=== PATIENT | female | born 1965 | race Caucasian/White ===

== ENCOUNTER 2019-10-30 00:16 | Emergency (ER) | payer BC ==
[2019-10-30] MEDS ORDERED: NORMAL SALINE 1000 ML 1,000 ML IV ONE ×2 (00:28→02:41)
--- NOTE | 2019-10-30 00:33 | ER Document Report ---
ED Medical Screen (RME) - General Stated Complaint: SUGAR ISSUES Time Seen by Provider: 10/30/19 00:28 Mode of Arrival: Wheelchair Information source: Patient Notes: Patient presents complaining of diabetes and a need for insulin. Patient states she was just recently diagnosed 3 weeks ago with diabetes and had been placed on metformin. Patient states that 2 days ago her doctor was going to switch her off of the metformin to insulin but she had to get a prior authorization that had not gone through so she did not get her insulin. Patient is not currently on any diabetic medications at this time. Patient complains of not feeling well increased thirst and diarrhea. Patient states earlier today she had some mild chest pain. Patient complains of pain to the hands and feet. Patient just moved here from [place] and states that her insulin prescription is sitting in a pharmacy in [place]. hx: Hypertension, diabetes, degenerative disc disease I have greeted and performed a rapid initial assessment of this patient. A comprehensive ED assessment and evaluation of the patient, analysis of test results and completion of the medical decision making process will be conducted by additional ED providers. - Related Data Allergies/Adverse Reactions: No Known Allergies Allergy (Unverified 10/30/19 00:30) Physical Exam - General General appearance: Appears well, Alert - Respiratory Respiratory status: No respiratory distress Chest status: Tender Chest palpation: Tender - Cardiovascular Rhythm: Regular Heart sounds: S1 appreciated, S2 appreciated
[2019-10-30] MEDS ORDERED: INSULIN REG, HUMAN 100 UNIT/ML 3 ML VIAL (PYX) IV ONE (02:41)
[2019-10-30] MEDS ORDERED: KETOROLAC TROMETHAMINE INJ/PF 30 MG/1 ML SDV IV ONE (02:42)
[2019-10-30 02:44] LABS: ABSOLUTE LYMPHOCYTES (AUTO) 3.3 10^3/uL (0.5-4.7); ABSOLUTE MONOCYTES (AUTO) 0.6 10^3/uL (0.1-1.4); ABSOLUTE NEUT (AUTO) 4.6 10^3/uL (1.7-8.2); BASOPHILS % (AUTO) 0.6 % (0-2); EOSINOPHILS % (AUTO) 0.5 % (0-6); HEMATOCRIT 45.2 % (36.0-47.0); HEMOGLOBIN 14.8 g/dL (12.0-15.5); LYMPHOCYTES % (AUTO) 37.9 % (13-45); MEAN CORPUSCULAR HEMOGLOBIN 28.5 pg (27.0-33.4); MEAN CORPUSCULAR HGB CONC 32.8 g/dL (32.0-36.0); MEAN CORPUSCULAR VOLUME 87 fl (80-97); MONOCYTES % (AUTO) 7.5 % (3-13); PLATELET COUNT 250 10^3/uL (150-450); RED BLOOD COUNT 5.21 10^6/uL (3.72-5.28); RED CELL DISTRIBUTION WIDTH 15.6 % (11.5-14.0); SEGMENTED NEUTROPHILS % (AUTO) 53.5 % (42-78); TOTAL CELLS COUNTED % (AUTO) 100 %; WHITE BLOOD COUNT 8.6 10^3/uL (4.0-10.5)
--- NOTE | 2019-10-30 02:45 | ER Document Report ---
Entered by KAT OLIVER SCRIBE 10/30/19 0218 Acting as scribe for:BETTY HYLTON IV, MD ED Blood Sugar Problem - General Chief Complaint: High Blood Sugar Stated Complaint: SUGAR ISSUES Time Seen by Provider: 10/30/19 00:28 Primary Care Provider: CHACHA DUMONT MD [HONORARY] - Follow up as needed Mode of Arrival: Wheelchair Information source: Patient Notes: This 53 year old female patient, recently diagnosed with diabetes x3 weeks ago presents to the ED today with complaints of high blood sugar. Patient states that she was placed on Metformin; however, her BGL readings were still high in the 600s despite being increased from 500 mg to 1000 mg. She reports that she is transitioning from [place] and her PCP there was going to switch her from Metformin to insulin, but she had to get "prior approval" that has not gone through yet, so she is not currently on any diabetic medications. She notes that her prescription is in a pharmacy in [place]. She complains of pain to her lower abdomen, hands, and feet. Denies any other complaints. - Related Data Allergies/Adverse Reactions: No Known Allergies Allergy (Unverified 10/30/19 00:30) Home Medications: INSULIN (OUT, NEVER FILLED). [place] Past Medical History - General Information source: Patient - Social History Smoking Status: Current Every Day Smoker Smoking Education Provided: No Frequency of alcohol use: None Drug Abuse: None Family History: Reviewed & Not Pertinent Patient has suicidal ideation: No Patient has homicidal ideation: No - Past Medical History Cardiac Medical History: Reports: Hx Hypertension Endocrine Medical History: Reports: Hx Diabetes Mellitus Type 2 Review of Systems - Review of Systems Constitutional: See HPI EENT: No symptoms reported Cardiovascular: No symptoms reported Respiratory: No symptoms reported Gastrointestinal: See HPI Genitourinary: No symptoms reported Female Genitourinary: No symptoms reported Musculoskeletal: See HPI Skin: No symptoms reported Hematologic/Lymphatic: No symptoms reported Neurological/Psychological: No symptoms reported -: Yes All other systems reviewed and negative Physical Exam - Vital signs Vitals: Temp Pulse Resp BP Pulse Ox 97.4 F 107 H 16 145/95 H 95 10/30/19 00:24 10/30/19 00:24 10/30/19 00:24 10/30/19 00:24 10/30/19 00:24 - General General appearance: Alert In distress: None - HEENT Head: Normocephalic, Atraumatic Eyes: Normal Pupils: PERRL - Respiratory Respiratory status: No respiratory distress Chest status: Nontender Breath sounds: Normal Chest palpation: Normal - Cardiovascular Rhythm: Regular Heart sounds: Normal auscultation Murmur: No Friction rub: No Gallop: None auscultated - Abdominal Inspection: Normal Distension: No distension Bowel sounds: Normal Tenderness: Nontender - Abdomen soft Organomegaly: No organomegaly - Back Back: Normal, Nontender - Extremities General upper extremity: Normal inspection General lower extremity: Normal inspection - Neurological Neuro grossly intact: Yes Orientation: AAOx4 [place] Coma Scale Eye Opening: Spontaneous [place] Coma Scale Verbal: Oriented [place] Coma Scale Motor: Obeys Commands [place] Coma Scale Total: 15 - Psychological Associated symptoms: Normal affect, Normal mood - Skin Skin Temperature: Warm Skin Moisture: Dry Skin Color: Normal Course - Re-evaluation Re-evalutation: 10/30/19 05:06 Results of ED MSE discussed with patient. Patient's blood glucose is down from the 600s into the 400s. This MD is going to order 4 units of subcu insulin to gradually bring the patient's blood sugar down more. Patient is uncertain about the prescription that is waiting for her at the pharmacy in terms of a hypoglycemic agent. In order to help the patient keep her blood sugar down, this MD is going to write for a sulfonylurea, glipizide XL 5 mg, dispense 5 tablets with no refills. All questions were answered prior to discharge. Emergency signs and symptoms, reasons to return to the emergency department discussed with patient. - Vital Signs Vital signs: Temp Pulse Resp BP Pulse Ox 97.6 F 83 16 133/83 H 95 10/30/19 05:35 10/30/19 05:35 10/30/19 05:35 10/30/19 05:35 10/30/19 05:35 - Laboratory Result Diagrams: 10/30/19 02:00 10/30/19 02:00 Laboratory results interpreted by me: 10/30/19 10/30/19 10/30/19 00:28 02:00 02:00 RDW 15.6 H Sodium 131.1 L Chloride 95 L Glucose 614 H* POC Glucose > 550 H* Alkaline Phosphatase 149 H Urine Glucose (UA) Urine Blood 10/30/19 10/30/1910/29/20 02:30 03:30 03:35 RDW Sodium Chloride Glucose POC Glucose > 550 H* 465 H* Alkaline Phosphatase Urine Glucose (UA) >=500 H Urine Blood SMALL H 10/30/19 04:59 RDW Sodium Chloride Glucose POC Glucose 428 H* Alkaline Phosphatase Urine Glucose (UA) Urine Blood - Diagnostic Test Radiology reviewed: Reports reviewed - EKG Interpretation by Me Additional EKG results interpreted by me: 10/30/19 05:09 EKG obtained on 10/30/2019 at 0128 hrs. was interpreted by this MD. Findings: Normal sinus rhythm, rate 96, normal axis, P waves proceed QRS complexes, QRS complexes appear narrow, there are no obvious patterns of ST segment elevation or depression present to suggest acute myocardial ischemia or infarction. Impression: Normal sinus rhythm with nonspecific ST segments. Discharge - Discharge Clinical Impression: Hyperglycemia due to diabetes mellitus Diabetic neuropathy Qualifiers: Diabetes mellitus type: type 2 Diabetes mellitus complication detail: diabetic polyneuropathy Qualified Code(s): E11.42 - Type 2 diabetes mellitus with diabetic polyneuropathy Condition: Stable Disposition: HOME, SELF-CARE Additional Instructions: Return to the Emergency Department without delay if any worse. HOME CARE INSTRUCTIONS & INFORMATION: Thank you for choosing us for your medical needs. We hope you're satisfied with the care you received. After you leave, you must properly care for your problem and, at the same time, observe its progress. Any condition can change. Some illnesses can change rapidly over hours or days. If your condition worsens, return to the Emergency Department or see your physician promptly. ABOUT YOUR X-RAYS AND EKG'S: If you had an EKG or X-rays taken, they have been read by the Emergency Physician. The X-rays and EKG's will also be read by a Radiologist or Petroleum Engineering Professor within 24 hours. If discrepancies are noted, you will be notified by telephone. Please be certain the ED has a correct telephone number & address where you can be reached. Also, realize that some fractures or abnormalities do not show up on initial X-rays. If your symptoms continue, see your physician. ABOUT YOUR LABORATORY TEST: If you had laboratory tests, the results have been reviewed by the Emergency Physician. Some test results (for example cultures) may not be available for several days. You will be contacted if any test result shows you need additional treatment. Please be certain the ED has a correct telephone number and address where you can be reached. ABOUT YOUR MEDICATIONS: You will receive instructions on how to take your medicine on the prescription label you receive. Additional information may be provided by the Pharmacy. If you have questions afterwards, call the ED for clarification or further instructions. Some prescribed medications may cause drowsiness. Do not perform tasks such as driving a car or operating machinery without consulting your Pharmacist. If you feel you need a refill of pain medication, your condition will need re-evaluation. Please do not call for a refill of any medication. ABOUT YOUR SIGNATURE: Signature of this document acknowledges to followin. Understanding that you received emergency treatment and that you may be released before al medical problems are known or treated. Please be certain the ED has a correct phone number & address where you can be reached. 2. Acknowledgement that you will arrange for follow-up care as recommended. 3. Authorization for the Emergency Physician to provide information to your follow-up Physician in order to maximize your care. AT ANY TIME, IF YOUR SYMPTOMS CHANGE SIGNIFICANTLY OR WORSEN OR YOU DEVELOP NEW SYMPTOMS, RETURN TO THE EMERGENCY DEPARTMENT IMMEDIATELY FOR RE-EVALUATION. OUR GOAL IS TO PROVIDE EXCELLENT MEDICAL CARE! WE HOPE THAT WE HAVE MET YOUR EXPECTATIONS DURING YOUR EMERGENCY DEPARTMENT VISIT AND THAT YOU FEEL YOU HAVE RECEIVED EXCELLENT CARE! Hyperglycemia (High Blood Sugar) You have an abnormally high blood sugar. Not all high blood sugar requires long-term treatment. High blood sugar can be due to medications, , or the stress of illness. (These cases are "borderline diabetes.") If the doctor feels your high blood sugar might resolve with time, you may not require treatment now. You will be scheduled for further evaluation. It's very important that you follow through, to see if the blood sugar returns to normal levels. Uncontrolled high blood sugar leads to early heart disease, strokes, nerve damage, eye damage, and kidney damage. Call the physician if there is faintness, excess sleepiness, or very rapid breathing. Prescriptions: Glipizide [Glipizide Xl] 5 mg PO QAM 5 Days #5 [id number] Referrals: CHACHA DUMONT MD [HONORARY] - Follow up as needed I personally performed the services described in the documentation, reviewed and edited the documentation which was dictated to the scribe in my presence, and it accurately records my words and actions.
[2019-10-30 03:01] LABS: ALKALINE PHOSPHATASE 149 U/L (38-126); ANION GAP 12 (5-19); ASPARTATE AMINO TRANSFERASE 29 U/L (14-36); BILIRUBIN,TOTAL 0.5 mg/dL (0.2-1.3); BLOOD UREA NITROGEN 18 mg/dL (7-20); CALCIUM 9.7 mg/dL (8.4-10.2); CARBON DIOXIDE 24 mmol/L (22-30); CHLORIDE 95 mmol/L (98-107); POTASSIUM 4.7 mmol/L (3.6-5.0); TOTAL PROTEIN 7.2 g/dL (6.3-8.2)
[2019-10-30 03:14] LABS: GLUCOSE 614 mg/dL (75-110)
[2019-10-30 03:23] LABS: VENOUS BLOOD HCO3 24.1 mmol/L (20-32); VENOUS BLOOD PCO2 41.6 mmHg (35-63); VENOUS BLOOD PH 7.38 (7.30-7.42)
--- NOTE | 2019-10-30 04:08 | RADIOLOGY REPORT (SQ) ---
CLINICAL HISTORY: cp COMPARISON: None. TECHNIQUE: XR CHEST 1 VIEW 10/30/2019 12:31 AM CDT FINDINGS: Cardiac silhouette is normal in size. Lungs are clear without consolidation, atelectasis, mass or edema. There is no pleural effusion. There is no pneumothorax. There are no acute osseous findings. IMPRESSION: Clear lungs.
[2019-10-30 04:35] LABS: APPEARANCE,URINE CLEAR; BILIRUBIN,URINE NEGATIVE (NEGATIVE); COLOR,URINE STRAW; GLUCOSE, URINE >=500 mg/dL (NEGATIVE); KETONES,URINE NEGATIVE (NEGATIVE); LEUKOCYTE ESTERASE,URINE NEGATIVE (NEGATIVE); NITRITE,URINE NEGATIVE (NEGATIVE); PROTEIN,URINE NEGATIVE (NEGATIVE); URINE SPECIFIC GRAVITY 1.031; UROBILINOGEN,URINE NEGATIVE mg/dL (<2.0)
[2019-10-30 04:56] LABS: URINE AMPHETAMINES SCREEN NEGATIVE; URINE BARBITURATES SCREEN NEGATIVE; URINE BENZODIAZEPINES SCREEN NEGATIVE; URINE COCAINE SCREEN NEGATIVE; URINE MARIJUANA (THC) SCREEN NEGATIVE; URINE PHENCYCLIDINE SCREEN NEGATIVE
[2019-10-30 04:57] LABS: URINE METHADONE SCREEN NEGATIVE
[2019-10-30] MEDS ORDERED: INSULIN REG, HUMAN 100 UNIT/ML 3 ML VIAL (PYX) SUBCUT ONE (05:03)
[2019-10-30] MEDS ORDERED: HYDROCODONE/ACETAMINOPHEN 5-325 MG (6 TAB/ER DISP) PO PRN (05:04)
[2019-10-30] MEDS ORDERED: HYDROCODONE/ACETAMINOPHEN 5-325 MG TABLET PO ONE (05:04)
[2019-10-30 05:42] VITALS: BP 133/83
--- NOTE | 2019-10-30 09:49 | EKG REPORT ---
SEVERITY:- NORMAL ECG - SINUS RHYTHM : Confirmed by: Cruz Rossi 30-Oct-2019 09:48:48
== END 2019-10-30 05:48 | disposition home or self-care (01) ==
LOC: ER 00:16
DX: E11.65 Type 2 diabetes mellitus with hyperglycemia (principal); E11.42 Type 2 diabetes mellitus with diabetic polyneuropathy; Z79.84 Long term (current) use of oral hypoglycemic drugs; Z79.899 Other long term (current) drug therapy; F17.200 Nicotine dependence, unspecified, uncomplicated
CPT/HCPCS: 93005; 99285; 96361; 96374; 96375; 36415; 82962; 85025; 80053; 81001; 84484; 80307; 82803; 71045; 93010; J1885; J1815; J7030

== ENCOUNTER 2019-11-04 22:34 | Emergency (ER) | payer BC, MEDICAID ==
--- NOTE | 2019-11-04 23:25 | ER Document Report ---
ED Medical Screen (RME) - General Stated Complaint: WEAKNESS/MEDICATION REFILL Notes: Patient is a 53-year-old white female with a history of diabetes who was seen here recently for uncontrolled diabetes who returns today with a complaint of needing medication refills. She was given glipizide and a short course of [place] for pain. She states that she is out of the medicine and she has not followed up outpatient yet. She states that she is having a neuropathy in all of her extremities. Requesting more pain medications and refills of the diabetic medicines. She states at home her blood sugar was over 500. I have treated and performed a rapid initial assessment of this patient. A co mprehensive ED assessment and evaluation of the patient, analysis of test results and completion of medical decision making process will be conducted by additional ED providers. PHYSICAL EXAMINATION: GENERAL: Well-appearing, well-nourished and in no acute distress. A&Ox4. Answers questions appropriately. - Related Data Allergies/Adverse Reactions: No Known Allergies Allergy (Verified 11/04/19 23:14) Past Medical History - Past Medical History Cardiac Medical History: Reports: Hx Hypertension Endocrine Medical History: Reports: Hx Diabetes Mellitus Type 2 GI Medical History: Reports: Hx Gastroesophageal Reflux Disease Physical Exam - Vital signs Vitals: Temp Pulse Resp BP Pulse Ox 98.1 F 98 20 175/96 H 95 11/04/19 22:49 11/04/19 22:49 11/04/19 22:49 11/04/19 22:49 11/04/19 22:49 Course - Vital Signs Vital signs: Temp Pulse Resp BP Pulse Ox 98.1 F 98 20 175/96 H 95 11/04/19 22:49 11/04/19 22:49 11/04/19 22:49 11/04/19 22:49 11/04/19 22:49
[2019-11-05 00:22] LABS: ABSOLUTE EOSINOPHILS # (AUTO) 0.1 10^3/uL (0.0-0.6); ABSOLUTE LYMPHOCYTES (AUTO) 3.5 10^3/uL (0.5-4.7); ABSOLUTE MONOCYTES (AUTO) 0.6 10^3/uL (0.1-1.4); ABSOLUTE NEUT (AUTO) 4.1 10^3/uL (1.7-8.2); BASOPHILS % (AUTO) 0.5 % (0-2); EOSINOPHILS % (AUTO) 0.9 % (0-6); HEMATOCRIT 44.6 % (36.0-47.0); HEMOGLOBIN 14.8 g/dL (12.0-15.5); LYMPHOCYTES % (AUTO) 42.4 % (13-45); MEAN CORPUSCULAR HEMOGLOBIN 28.3 pg (27.0-33.4); MEAN CORPUSCULAR HGB CONC 33.2 g/dL (32.0-36.0); MEAN CORPUSCULAR VOLUME 85 fl (80-97); MONOCYTES % (AUTO) 7.7 % (3-13); PLATELET COUNT 222 10^3/uL (150-450); RED BLOOD COUNT 5.23 10^6/uL (3.72-5.28); RED CELL DISTRIBUTION WIDTH 15.2 % (11.5-14.0); SEGMENTED NEUTROPHILS % (AUTO) 48.5 % (42-78); TOTAL CELLS COUNTED % (AUTO) 100 %; WHITE BLOOD COUNT 8.3 10^3/uL (4.0-10.5)
[2019-11-05 00:41] LABS: ALBUMIN 4.2 g/dL (3.5-5.0); ALKALINE PHOSPHATASE 146 U/L (38-126); ANION GAP 10 (5-19); ASPARTATE AMINO TRANSFERASE 30 U/L (14-36); BILIRUBIN,DIRECT 0.4 mg/dL (0.0-0.4); BILIRUBIN,TOTAL 0.5 mg/dL (0.2-1.3); BLOOD UREA NITROGEN 15 mg/dL (7-20); CALCIUM 9.9 mg/dL (8.4-10.2); CARBON DIOXIDE 25 mmol/L (22-30); CHLORIDE 99 mmol/L (98-107); POTASSIUM 4.3 mmol/L (3.6-5.0); TOTAL PROTEIN 7.5 g/dL (6.3-8.2)
[2019-11-05 00:50] LABS: GLUCOSE 447 mg/dL (75-110)
[2019-11-05 02:14] VITALS: BP 147/96
[2019-11-05] MEDS ORDERED: FLUCONAZOLE 100 MG TABLET PO ONE (04:06)
--- NOTE | 2019-11-05 04:12 | ER Document Report ---
ED General - General Chief Complaint: High Blood Sugar Stated Complaint: WEAKNESS/MEDICATION REFILL Time Seen by Provider: 11/05/19 03:54 - HPI Notes: Patient is a 53-year-old female who presents to the emergency department for ev aluation. She states she was recently diagnosed with diabetes. She was started on metformin but it "was not working for her." She states she was told by the physician at the ER [facility] that her "sugar was too high for that." She was seen here and started on glipizide as well as given a prescription for [place]. She complains of pain in her vaginal region, her bilateral hands. She states th at she does have polyuria. She denies any dysuria. She states that while taking just the glipizide, her blood sugars have been in the 300-400 range. - Related Data Allergies/Adverse Reactions: No Known Allergies Allergy (Verified 11/04/19 23:14) Home Medications: GLIPIZIDE Past Medical History - General Information source: Patient - Social History Smoking Status: Current Every Day Smoker Frequency of alcohol use: None Drug Abuse: None Family History: Reviewed & Not Pertinent, DM - Past Medical History Cardiac Medical History: Reports: Hx Hypertension Endocrine Medical History: Reports: Hx Diabetes Mellitus Type 2 GI Medical History: Reports: Hx Gastroesophageal Reflux Disease Review of Systems - Review of Systems Constitutional: No symptoms reported EENT: No symptoms reported Cardiovascular: No symptoms reported Respiratory: No symptoms reported Gastrointestinal: No symptoms reported Genitourinary: See HPI Female Genitourinary: See HPI Musculoskeletal: See HPI Skin: No symptoms reported Neurological/Psychological: No symptoms reported Physical Exam - Vital signs Vitals: Temp Pulse Resp BP Pulse Ox 98.1 F 98 20 175/96 H 95 11/04/19 22:49 11/04/19 22:49 11/04/19 22:49 11/04/19 22:49 11/04/19 22:49 - Notes Notes: This is an obese 53-year-old female who appears her stated age, no acute distress. Vital signs reviewed, please refer to chart. Head is normocephalic, atraumatic. Pupils equal round, reactive to light. Neck is supple without meningismus. Heart is regular rate and rhythm. Lungs are clear to auscultation bilaterally. Abdomen is soft, nontender, normoactive bowel sounds throughout. Extremities without cyanosis, clubbing. Posterior calves are nontender. Peripheral pulses are equal. Skin is warm and dry. Patient is awake, alert, neurological exam is nonfocal. General exam performed with ANGELICA Okeefe, present in the room. Patient has edema and erythema of the labia majora and minora, tracking down into the perineum. Well demarcated edges, all consistent with [place]. Course - Re-evaluation Re-evalutation: 11/05/19 04:11 Patient presents to the emergency department for evaluation. Laboratory investigations were obtained. She is hyperglycemic. I do believe it is appropriate for the patient to be both on metformin and glipizide. Prescription written for same. I explained to the patient that she needs to make appropriate lifestyle changes and diet changes in regards to diabetes control. I also explained to her that the yeast infection she was experiencing was likely from glucosuria. She is given Diflucan here, will write a prescription for nystatin ointment. She is given referral onto primary care, is to return to the ED with worsening or new concerning symptoms of any sort. - Vital Signs Vital signs: Temp Pulse Resp BP Pulse Ox 98.1 F 91 20 147/96 H 96 11/05/19 02:06 11/05/19 02:06 11/04/19 22:49 11/05/19 02:06 11/05/19 02:06 - Laboratory Result Diagrams: 11/04/19 23:49 11/04/19 23:49 Laboratory results interpreted by me: 11/04/19 11/04/19 23:49 23:49 RDW 15.2 H Sodium 134.0 L Glucose 447 H* Alkaline Phosphatase 146 H Discharge - Discharge Clinical Impression: Hyperglycemia due to diabetes mellitus, Vaginal candidiasis Condition: Stable Disposition: HOME, SELF-CARE Instructions: Diabetes ([facility]), Vaginal Yeast Infection ([facility]) Additional Instructions: Take medications as prescribed. Follow-up with primary care next week. Return to the emergency department with worsening or new concerning symptoms of any sort.
== END 2019-11-05 04:33 | disposition home or self-care (01) ==
LOC: ER 22:34
DX: B37.3 Candidiasis of vulva and vagina (principal); E11.65 Type 2 diabetes mellitus with hyperglycemia; R53.1 Weakness; F17.200 Nicotine dependence, unspecified, uncomplicated; Z79.899 Other long term (current) drug therapy; I10 Essential (primary) hypertension
CPT/HCPCS: 36415; 80053; 82962; 85025; 99283